=== PATIENT | female | born 1980 | race African-American/Black ===

== ENCOUNTER 2022-02-22 18:14 | Emergency (ER) | payer OTHER, SELFPAY ==
--- NOTE | ~2022-02-22 | CT_ITS ---
EXAMINATION: CT lumbar spine wo con DATE: 02/22/2022 19:40 INDICATION: low back pain, injury . TECHNIQUE: Computed tomography (CT) of the lumbar spine was performed without intravenous contrast. A utomated exposure control and iterative reconstruction technique were employed. The dose-length produ ct was 1290.32 mGy-cm. COMPARISON: None. FINDINGS: Mild lumbar scoliosis. 5 nonrib-bearing lumbar-type vertebral bodies. Pedicles intact. Norm al vertebral body alignment. Vertebral body heights preserved. Multilevel mild disc space narrowing a t L3-4 and L5-S1. Moderate disc space narrowing at L4-5, where a moderate right lateral disc protrusi on contributes to moderate right neural foraminal narrowing. No severe central canal stenosis. IUD, i n good position. Mild multilevel facet arthropathy. IMPRESSION: No acute fracture or traumatic malalignment in the lumbar spine. Chronic and incidental findings deta iled above. Reviewed, dictated and finalized at location K. ING MACHINE OPERATOR IMPRESSION: No acute fracture or traumatic malalignment in the lumbar spine. Chronic and in cidental findings detailed above.
[2022-02-22 18:27] VITALS: BP 137/96; PULSE 101; RESP 20; TEMP 36.1; O2SAT 99
--- NOTE | 2022-02-22 18:37 | PC.NURSE ---
EDP in bedside to assess pt.
--- NOTE | 2022-02-22 18:40 | ED.BACK ---
HPI - Back Pain/Injury General Chief Complaint: Back Pain/Injury Stated Complaint: lower back spasm Time Seen by Provider: 02/22/22 18:33 Source: patient Mode of arrival: ambulatory Limitations: no limitations History of Present Illness HPI Narrative: This is a 41-year-old female that presents to the emergency department for low back pain ongoing over the last 2 days. Reports she was walking her dog and the dog pulled on its leash. This caused her to fall onto her bottom. Reports since she has had low back pain, worse with movement. Reports that the pain radiates into her left leg. It is achy and at times sharp in nature. There is a prior history of chronic low back problems. She has been trying to take ibuprofen with little relief. Denies saddle anesthesia, or bowel/bladder incontinence. Related Data Allergies Allergy/AdvReac Type Severity Reaction Status Date / Time Penicillins Allergy Swelling Verified 02/22/22 18:55 of Lip/Tongue/Throat Review of Systems Review of Systems: CONSTITUTIONAL: Denies fever SKIN: Denies rash MUSCULOSKELETAL: Reports back pain, joint pain, and myalgia. NEUROLOGIC: Denies numbness, or weakness. All systems reviewed & are unremarkable except as noted in HPI and below PMFSH Past Medical History Medical History (Updated 02/22/22 @ 20:08 by Janeth Pendleton PA-C) No active medical problems Social History Social History (Updated 02/22/22 @ 18:41 by Janeth Pendleton PA-C) Substance use: never Exam Narrative: GENERAL: Well-appearing, well-nourished, and in no acute distress. HEAD: Normocephalic, atraumatic. EYES: EOMI. CHEST: Clear to auscultation. No respiratory distress. No wheezes rales or rhonchi HEART: Regular rate and rhythm. No murmur heard. Normal peripheral pulses. BACK: Tender to palpation of midline lumbar spine and paraspinal musculature EXTREMITIES: Normal range of motion. No edema. Normal DP pulses. Strength equal in bilateral lower extremities (5/5) SKIN: Warm, dry, no rash. NEURO: No focal deficits. Alert and oriented x3. PSYCH: Normal mood and affect Course Course Emergency Course: Patient updated on workup, agrees with plan of care Vital Signs Vital signs: Vital Signs Temperature 97.0 F L 02/22/22 18:27 Pulse Rate 101 H 02/22/22 18:27 Respiratory Rate 20 02/22/22 18:27 Blood Pressure 137/96 H 02/22/22 18:27 Pulse Oximetry 99 02/22/22 18:27 Oxygen Delivery Room Air 02/22/22 18:27 Temperature 97.0 F L 02/22/22 18:27 Pulse Rate 101 H 02/22/22 18:27 Respiratory Rate 20 02/22/22 18:27 Blood Pressure 137/96 H 02/22/22 18:27 Pulse Oximetry 99 02/22/22 18:27 Oxygen Delivery Room Air 02/22/22 18:27 MDM - Back Pain/Injury MDM Narrative Medical decision making narrative: Patient presents to the ER for acute on chronic low back pain after a fall 2 days ago. Patient is neurovascularly intact. Denies any saddle anesthesia, bowel/bladder incontinence. CT scan of the lumbar spine is without acute traumatic findings. Patient was updated on work-up. Instructed to rest, ice and take [id number] pain medication as needed. Will be prescribed muscle relaxer as needed for pain as well as a steroid taper. She is to follow-up with her primary care provider. She was given warnings to return to the ER Differential Diagnosis Differential diagnosis: Likely lumbar radiculopathy, sciatica, strain of lumbar region and other (contusion) Lab Data Attestation: I reviewed the patient's lab results. Labs: UCG Bedside Result Negative Reference Range: Negative Imaging Data Radiologist's impression: ITS Impressions Lumbar Spine CT 02/22/22 19:51 IMPRESSION: No acute fracture or traumatic malalignment in the lumbar spine. Chronic and incidental findings detailed above. Critical Care Time Critical Care Time Critical Care Time: No D
[2022-02-22] MEDS: ACETAMINOPHEN 500 MG TABLET 1000 MG PO (19:00)
[2022-02-22] MEDS: diazePAM INJ (*CRX) 10 MG/2 ML SYRINGE 5 MG IM (19:01)
[2022-02-22] MEDS: KETOROLAC 30 MG/ML VIAL (*BKC) IM (20:10)
[2022-02-22] MEDS: predniSONE 20 MG TABLET 60 MG PO (21:14)
[2022-02-22 21:18] VITALS: BP 125/81; PULSE 71; RESP 16; O2SAT 98
== END 2022-02-22 21:18 | disposition home or self-care (01) ==
PROVIDERS: Emergency Provider Physician Assistant; PCP Family Medicine Sports Medicine
DX: M54.42 Lumbago with sciatica, left side (principal); W18.39XA Other fall on same level, initial encounter; Y93.K1 Activity, walking an animal
CPT/HCPCS: 72131; 81025; 96372; 99284; A9270; J1885; J3360; J7512

== ENCOUNTER 2022-09-19 18:09 | Emergency (ER) | payer OTHER, SELFPAY ==
[2022-09-19 18:17] VITALS: BP 118/79; PULSE 80; RESP 19; TEMP 36.1; O2SAT 99
--- NOTE | 2022-09-19 18:21 | ED.EYEPROB ---
HPI - Eye Problem General Chief complaint: Eye Problems Stated complaint: EYE IRRITATION Time Seen by Provider: 09/19/22 18:22 Source: patient, RN notes reviewed and old records reviewed Mode of arrival: ambulatory Limitations: no limitations History of Present Illness HPI Narrative: 42-year-old female accompanied by son presents to [facility] complaints feeling like she has a scratch in her left eye pr something in it. Patient reports that she felt some irritation to her left eye last evening thought she had maybe a eyelash in it and still had contact in when she rubbed it, she took out contact and went to bed. Patient states her left eye still felt a little irritation to eye when she awoke and she was getting ready and put her contact it and had increased irritation of her left eye with sunlight causing her increased discomfort.took out contact and has only worn contact to unaffected eye today.Patient described pain as pressure and soreness to her left eye. MD chief complaint: eye pain and other (feels like eye is scratched) Onset (ago): day(s) (since last night) Onset description: gradual Duration: progressively worsening Location: left eye Severity scale (1-10): 7 Treatments Prior to Arrival: removed contact lens Related Data Home Medications Medication Instructions Recorded Confirmed escitalopram oxalate 20 mg tablet 20 mg PO DAILY 09/19/22 09/19/22 trazodone 50 mg tablet 50 mg PO HS 09/19/22 09/19/22 Allergies Allergy/AdvReac Type Severity Reaction Status Date / Time Penicillins Allergy Swelling Verified 09/19/22 18:24 of Lip/Tongue/Throat Review of Systems Review of Systems: CONSTITUTIONAL: Denies fever, chills, or sweats. EYES: Denies visual changes. Reports redness,irritation, photosensitivity to left eye and discomfort ENT: Denies rhinorrhea, congestion, sore throat, or otalgia. CARDIOVASCULAR: Denies chest pain, palpitations, or edema. RESPIRATORY: Denies cough or dyspnea. SKIN: Denies rash or itching. NEUROLOGIC: Denies headache PMFSH Past Medical History Medical History (Updated 09/19/22 @ 20:16 by Nerissa Gardner NP) Anxiety and depression Back pain Social History Social History (Updated 09/19/22 @ 20:17 by Nerissa Gardner NP) Smoking status: Never smoker Alcohol intake: unknown Substance use: never Living arrangements: with family Gender identity (if verbalized by the patient): Female Comments At time of signature, agree with nursing past medical, surgical, social and family history. There is no relevant family history pertinent to the presenting complaint Exam Narrative: GENERAL: Well-appearing, well-nourished, and in no acute distress. HEAD: Normocephalic, atraumatic. EYES: PERRLA and EOMI. Upper and lower eyelids unremarkable. No periorbital cellulitis noted. Sclera injected left eye, irritation with photosensitivity,pressure left eye with soreness, denies sharp pain, ENT: Nares clear, no rhinorrhea or epistaxis. Mucous membranes moist. NECK: Supple. no lymphadenopathy CHEST: Clear to auscultation. No respiratory distress. HEART: Regular rate and rhythm. No murmur heard. Normal peripheral pulses. SKIN: Warm, dry, no rash. NEURO: No focal deficits. Alert and oriented x3. Course Course Emergency Course: Patient is aware of diagnosis, understands and agrees to treatment plan. Anticipatory guidance given. Patient agrees to follow-up as directed and is aware of reasons to seek care at the emergency department. Portions of this record may have been created with voice recognition software Level of Care: [facility] Visit Vital Signs Vital signs: Vital Signs Temperature 36.1 C L 09/19/22 18:17 Pulse Rate 80 09/19/22 18:17 Respiratory Rate 19 09/19/22 18:17 Blood Pressure 118/79 09/19/22 18:17 Pulse Oximetry 99 09/19/22 18:17 Oxygen Delivery Room Air 09/19/22 18:17 Temperature 36.1 C L 09/19/22 18:17 Pulse Rate 8
== END 2022-09-19 18:41 | disposition home or self-care (01) ==
PROVIDERS: Emergency Provider Registered Nurse
DX: S05.02XA Injury of conjunctiva and corneal abrasion without foreign body, left eye, initial encounter (principal); X58.XXXA Exposure to other specified factors, initial encounter; F41.9 Anxiety disorder, unspecified; F32.A Depression, unspecified
CPT/HCPCS: 99213; A9270; G0463

== ENCOUNTER 2023-10-14 13:34 | Emergency (ER) | payer OTHER, SELFPAY ==
--- NOTE | ~2023-10-14 | CT_ITS ---
EXAMINATION: CT lumbar spine wo con DATE: 10/14/2023 18:16 INDICATION: Chronic low back pain TECHNIQUE: Computed tomography (CT) of the lumbar spine was performed without intravenous contrast. A utomated exposure control and iterative reconstruction technique were employed. The dose-length produ ct was 1270.09 mGy-cm. COMPARISON: 02/22/2022 FINDINGS: Alignment is normal. Schmorl's node along the superior endplate of L5. Vertebral body heigh ts are otherwise normal. Moderate disc height loss at L4-L5. Remaining disc heights are relatively pr eserved. Paravertebral soft tissues are unremarkable. The following disc levels are specifically disc ussed: T11-T12: There is mild right and moderate left facet joint osteoarthritis. There is no neural foramin al stenosis. There is no central canal stenosis. T12-L1: There is mild bilateral facet joint osteoarthritis. There is no neural foraminal stenosis. Th ere is no central canal stenosis. L1-L2: There is mild bilateral facet joint osteoarthritis. There is no neural foraminal stenosis. The re is no central canal stenosis. L2-L3: Disc is mildly bulging. There is mild right and moderate left facet joint osteoarthritis. Ther e is no neural foraminal stenosis. There is normal central canal stenosis. L3-L4: Disc is bulging. There is mild right and mild to moderate left facet joint osteoarthritis. The re is mild bilateral neural foraminal stenosis. There is mild central canal stenosis. L4-L5: Disc is bulging. There is mild to moderate left and severe right facet joint osteoarthritis. T here is moderate bilateral, right greater than left neural foraminal stenosis. There is mild to moder ate central canal stenosis. L5-S1: Prominent central disc protrusion. There is mild right and mild to moderate left facet joint o steoarthritis. There is mild bilateral neural foraminal stenosis. There is mild central canal stenosi s along with narrowing of the left and right lateral recesses. IMPRESSION: 1. Moderate spondylosis at L4-L5 with otherwise mild lumbar and lower thoracic spondylosis.. Reviewed, dictated and finalized at location A.
[2023-10-14 13:34] VITALS: BP 119/84; PULSE 110; RESP 20; TEMP 36.8; O2SAT 98
--- NOTE | 2023-10-14 16:32 | ED.BACK ---
HPI - Back Pain/Injury General Chief Complaint: Back Pain/Injury Stated Complaint: back pain Time Seen by Provider: 10/14/23 16:19 Source: patient Mode of arrival: ambulatory Limitations: no limitations History of Present Illness HPI Narrative: 43 YEARS OLD FEMALE CAME TO THE EMERGENCY ROOM BY PRIVATE CAR COMPLAINING OF LOWER BACK PAIN WITH SHOOTING NUMBNESS TO HER LEFT TOES AND NUMBNESS OF THE RIGHT UPPER EXTREMITY BEEN GOING FOR FEW DAYS. PATIENT HAVE HISTORY OF LOWER BACK BULGING DISC, IS TO HAVE EPIDURAL INJECTION THE PAST, MOVED TO [place] RECENT AND DOES NOT HAVE A PHYSICIAN. SHE DENIES PATIENT DENIES BOWEL DYSFUNCTION, BLADDER DYSFUNCTION, ALTERED SENSATION, FOCAL WEAKNESS, OR SADDLE NUMBNESS, Related Data Home Medications Medication Instructions Recorded Confirmed escitalopram oxalate 20 mg tablet 20 mg PO DAILY 09/19/22 09/19/22 trazodone 50 mg tablet 50 mg PO HS 09/19/22 09/19/22 Allergies Allergy/AdvReac Type Severity Reaction Status Date / Time Penicillins Allergy Swelling Verified 09/19/22 18:24 of Lip/Tongue/Throat Review of Systems Review of Systems: All systems reviewed & are unremarkable except as noted in HPI and below PMFSH Past Medical History Medical History Anxiety and depression Back pain Social History Social History Smoking status: Never smoker Alcohol intake: unknown Substance use: never Living arrangements: with family Gender identity (if verbalized by the patient): Female Exam Narrative: GENERAL APPEARANCE: WELL-DEVELOPED, WELL-NOURISHED SKIN: NORMAL COLOR CHEST AND RESPIRATORY: AIRWAY PATENT, NO RESPIRATORY DISTRESS, NO ACCESSORY MUSCLE USE HEART: REGULAR RATE/RHYTHM ABDOMEN: SOFT, NONTENDER, NO ORGANOMEGALY, QUIET BOWEL SOUNDS VASCULAR: NORMAL PERIPHERAL PULSES, NORMAL CAPILLARY REFILL. MUSCULOSKELETAL: DIFFUSE TENDERNESS LUMBAR AND LEFT BUTTOCK, NO BRUISES, NO SWELLING OR RASH NEUROLOGIC: ALERT AND ORIENTED ?3, POSITIVE LEFT LEG RAISING TEST Course Vital Signs Vital signs: Vital Signs Temperature 36.8 C 10/14/23 13:34 Pulse Rate 110 H 10/14/23 13:34 Respiratory Rate 20 10/14/23 13:34 Blood Pressure 119/84 10/14/23 13:34 Pulse Oximetry 98 10/14/23 13:34 Oxygen Delivery Room Air 10/14/23 13:34 Temperature 36.8 C 10/14/23 13:34 Pulse Rate 110 H 10/14/23 13:34 Respiratory Rate 20 10/14/23 13:34 Blood Pressure 119/84 10/14/23 13:34 Pulse Oximetry 98 10/14/23 13:34 Oxygen Delivery Room Air 10/14/23 13:34 MDM - Back Pain/Injury MDM Narrative Medical decision making narrative: DIFFERENTIAL DIAGNOSIS INCLUDE MUSCULOSKELETAL, SCIATICA CT LUMBAR SPINE SHOWED NO ACUTE ABNORMALITIES PATIENT RECEIVED DILAUDID, ZOFRAN AND DECADRON IN THE ED PRIOR TO DISCHARGE WITH REMARKABLE IN. DISCHARGED ON DECADRON. Differential Diagnosis Differential diagnosis: Likely other ( ABOVE) Imaging Data Radiologist's impression: Impressions Lumbar Spine CT 10/14/23 18:22 IMPRESSION: 1. Moderate spondylosis at L4-L5 with otherwise mild lumbar and lower thoracic spondylosis.. Critical Care Time Critical Care Time Critical Care Time: No Discharge Plan Discharge Clinical Impression: Low back pain radiating to left lower extremity Patient Disposition: Home, Self-Care Condition: Stable Instructions: Lumbar Radiculopathy (ED), Lower Back Exercises (ED) Additional Instructions: RETURN IF SYMPTOMS ARE WORSENING , CALL YOUR FAMILY PHYSICIAN FOR APPOINTMENT, TAKE TYLENOL NEEDED FOR ACHES A
[2023-10-14] MEDS: dexAMETHasone SOD PHOS INJ 10 MG/ML 1 ML VIAL IM (17:42)
[2023-10-14] MEDS: HYDROmorphone HCL INJ (*CRX) 1 MG/ML SYR IM (17:42)
[2023-10-14] MEDS: ONDANSETRON HCL ODT 4 MG TABLET PO (17:42)
== END 2023-10-14 18:55 | disposition home or self-care (01) ==
PROVIDERS: Emergency Provider Emergency Medicine
DX: M54.50 Low back pain, unspecified (principal); M79.662 Pain in left lower leg; F41.8 Other specified anxiety disorders
CPT/HCPCS: 72131; 96372; 99284; A9270; J1100; J1170

== ENCOUNTER 2024-11-04 13:20 | Emergency (ER) | payer OTHER, SELFPAY ==
--- OUTSIDE RECORDS SUMMARY | 2024-11-03 18:00 | XMS_ITS | Encounter Summary ---
Author Organization [facility] Healthcare Address [address] [place] [address] Care Team Providers Care Pipeline Inspector Name Role Phone Yulisa Munoz MD Primary Care Provider Unknown, Notinfile Unavailable Unavailable Yovany Lloyd MD Unavailable [phone] Reason for Visit * Reason Comments URI Headache, no voice, cold all the time, heavy chest, dry cough, light headed when standing Encounter Details Date Type Department Care Team (Late st Contact Info) Description 11/03/2024 6:00 PM CDT Office Visit [facility] at [address] [address] Daisy Rowe, AUDIOVISUAL AIDS TECHNICIAN [address] [place] [address] [address] [place] [address] Nonintractable headache, unspecified chronicity pattern, unspecified headache type (Primary Dx); COVID-19; Dizziness Social History Tobacco Use Types Packs/Day Years Used Date Smoking Tobacco: Former Vaping Smokeless Tobacco: Never Humiliation, Afraid, Rape, and Kick questionnair e Answer Date Recorded Within the last year, have y ou been afraid of your partner or ex-partner? No 04/14/2022 Within the last year, have y ou been humiliated or emotionally abused in other ways by your partner or ex-partner? No Within the last year, have y ou been kicked, hit, slapped, or otherwise physically hurt by your partner or ex-partner? No 04/14/2022 Within the last year, have y ou been raped or forced to have any kind of sexual activity by your partner or ex-partner? No 04/14/2022 AUDIT-C Answer Date Recorded Frequency of Alcohol Consumption Not on file 10/19/2022 Q2: How many drinks containi ng alcohol do you have on a typical day when you are drinking? Patient does not drink Frequency of Binge Drinking Not on file 08/2022 PHQ-2 Answer Date Recorded PHQ-2 Total Score (If total score is 3 or more points, staff should administer the PHQ-9) 2 06/27/2023 PHQ-9 Answer Date Recorded PHQ-9 Total Score 9 06/27/2023 Personal Safety Answer Date Recorded Have you ever been in or are you currently in a harmful physical or emotional relationship or is someone making you feel afraid or unsafe? 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 Gender Identity Not on file Sexual Orientation Not on file documented as of this encounter Last Filed Vital Signs Vital Sign Reading Time Taken Comments Blood Pressure 120/86 11/03/2024 5:58 PM CDT Pulse 97 11/03/2024 5:58 PM CDT Temperature 36.5 C (97.7 F) 11/03/2024 5:58 PM CDT Respiratory Rate 18 11/03/2024 5:58 PM CDT Oxygen Saturation 99% 11/03/2024 5:58 PM CDT Inhaled Oxygen Concentration - - Weight 106.6 kg (235 lb) 11/03/2024 5:58 PM CDT Height 170.2 cm (5' 7) 11/03/2024 5:58 PM CDT Body Mass Index 36.81 11/03/2024 5:58 PM CDT documented in this encounter Patient Instructions * Patient Instructions* Daisy Rowe NP - 11/03/2024 6:00 PM CDT If you have no improvement or worsening of your symptoms, please follow up with your Primary Care Provider, Convenient Care and or Emergency Room. I strive to provide you with EXCELLENT service. You may receive a survey after your visit today. If you cannot rate your experience as EXCELLENT, please let us know how we can improve and better meet your needs. Thank you for choosing [facility]! It was my pleasure to see you today, I hope you feel better soon! Daisy Rowe TERENCE If You Test Positive for COVID-19: Regardless of vaccination status, you should isolate from others when you have COVID-19. You should also isolate if you are sick and suspect that you have COVID-19 but do not yet have testresults. Day 1 is the first full day after the day your symptoms started You are likely most infectious during these first 5 days. Wear a high-quality mask if you must be around others at home and in public. Do not go places where you are unable to wear a mask. Do not travel. Stay home and separate from others as much as possible. Use a separate bathroom, if possible. Take steps to improve ventilation at home, if possible. Don???t share personal household items, like cups, towels, and utensils. Monitor your symptoms. If you have progression of your symptoms, seek emergency medical care immediately. If you have a fever, continue to stay home until your fever resolves for at least 24 hours (withouttaking fever-reducing medications) and other symptoms are improving. Loss of taste and smell may persist for weeks or months after recovery and need not delay the end of isolation. A high-quality mask should be worn around others at home and in public through day 10. In certain high-risk congregate settings that have high risk of secondary transmission, CDC recommends a 10-day isolation period for residents. What about my close contacts? - They should wear a mask since they were exposed. Start counting from Day 1 Day 0 is the day of your last exposure to someone with COVID-19 Day 1 is the first full day after your last exposure Obtain testing for any symptoms: fever (100.4??F or greater) cough shortness of breath/difficulty breathing Diarrhea Headache Muscle/body aches New loss of taste or smell Sore throat Runny nose/nasal congestion Loss of taste/smell Nausea/vomiting Get tested at least 5 full days after your last exposure- Test even if you don???t develop symptoms. When will my results be available? - PCR tests take between 8 hours to 2 days. You will be notified as soon as results are available. The CDC and [facility] have much more information available online. The websites are: - cdc.gov - bjc.org Additional resources around self-isolation and how to prevent spread are at: cdc.gov/coronavirus/2019-ncov/about/index.html If symptoms are severe, rest at home for the first 2 to 3 days. When you resume activity, don't letyourself get too tired. Don't smoke. If you need help stopping, talk with your healthcare provider. Avoid being exposed to cigarette smoke (yours or others???). You may use acetaminophen to control pain and fever, unless another medicine was prescribed. If youhave chronic liver disease, have ever had a stomach ulcer or gastrointestinal bleeding talk with your healthcare provider before using these medicines. Aspirin should never be given to anyone under 18 years of age who is ill with a viral infection or fever. It may cause severe liver or brain damage. Your appetite may be poor, so a light diet is fine. Stay well hydrated by drinking 6 to 8 glasses of fluids per day (water, soft drinks, juices, tea, or soup). Extra fluids will help loosen secretions in the nose and lungs. Mhbo-zls-lnvvieu cold medicines will not shorten the length of time you???re sick, but they may be helpful for the following symptoms: cough, sore throat, and nasal and sinus congestion. If you take prescription medicines, ask your healthcare provider or pharmacist which sbnt-cas-gycfdqr medicines are safe to use. (Note: Don't use decongestants if you have high blood pressure.) If you develop worsening of shortness of breath, high fevers, symptoms of respiratory distress, or other concerning symptoms, go to the ER or call 911. * Attachments The following attachments cannot be sent through Care Everywhere. * Dizziness (AfterCare(R) Instructions(ER/ED)) ([place]an) documented in this encounter Ordered Prescriptions Prescription Sig Dispense Quantity Refills Last Filled Start Date End Date meclizine (ANTIVERT) 25 mg tabletIndications: Dizziness Take 1 tablet (25 mg total) by mouth 3 (three) times a day as needed for dizziness 20 tablet 11/03/2024 lidocaine viscous (XYLOCAINE) 2 % solutionIndication s:COVID-19 Apply 10 mL to the mouth or throat every 6 (six) hours as needed (sore throat) May mix with 30 ml of Mylanta 100 mL 11/03/2024 benzonatate (TESSALON) 200 mg capsuleIndications :COVID-19 Take 1 capsule (200 mg total) by mouth 3 (three) times a day as needed for cough 30 capsule 11/03/2024 documented in this encounter Progress Notes * Daisy Rowe, AUDIOVISUAL AIDS TECHNICIAN - 11/03/2024 6:00 PM CDT Images from the original note were not included. Subjective/Objective Patient ID: Linnea Brewer is a 44 y.o. female. This patient has verbally consented to recording this visit in order to utilize AI technology in generating this note. Chief Complaint URI (Headache, no voice, cold all the time, heavy chest, dry cough, light headed when standing) History of Present Illness Linnea Brewer is a 44 year old female who presents with dizziness, headache, and respiratory symptoms. She woke up on Sunday with a headache, hoarseness, feeling cold, heaviness in the chest, and lightheadedness upon standing. The dizziness is severe and has limited her daily activities, leading herto remain mostly lying down since Sunday. She experiences a sore throat, sinus congestion, and headaches. She has been taking Nyquil and sinus medication without relief. She has not eaten since Sunday due to lack of appetite, consuming only hot tea and Gatorade, which she believes contributes to feeling jittery. She has potential exposure to COVID-19 from a coworker and her son in college. She has a history ofCOVID-19 infection and has been vaccinated twice. No loss of smell or taste is noted. She uses honey to alleviate her cough and sore throat. She is concerned about her 11-year-old son being exposed to her illness, noting that all her children have had COVID except him. On Sunday, she visited urgent care in [place] due to severe leg pain, suspecting a blood clot. An EKG was performed and results were normal. She confirms no chance of , having had a tubal ligation at age 42. Review of Systems All other systems reviewed and are negative. Physical Exam VITALS: T- 97.7 HEENT: Throat red Physical Exam Constitutional: Appearance: Normal appearance. She is normal weight. She is not ill-appearing. HENT: Head: Normocephalic. Right Ear: Tympanic membrane, ear canal and external ear normal. Left Ear: Tympanic membrane, ear canal and external ear normal. Nose: Nose normal. Mouth/Throat: Mouth: Mucous membranes are moist. Pharynx: Oropharynx is clear. Posterior oropharyngeal erythema present. Eyes: Pupils: Pupils are equal, round, and reactive to light. Cardiovascular: Rate and Rhythm: Normal rate and regular rhythm. Pulses: Normal pulses. Heart sounds: Normal heart sounds. Pulmonary: Effort: Pulmonary effort is normal. Breath sounds: Normal breath sounds. No rhonchi. Musculoskeletal: General: Normal range of motion. Cervical back: Normal range of motion. Skin: General: Skin is warm and dry. Capillary Refill: Capillary refill takes less than 2 seconds. Neurological: General: No focal deficit present. Mental Status: She is alert and oriented to person, place, and time. Mental status is at baseline. Psychiatric: Mood and Affect: Mood normal. Behavior: Behavior normal. Thought Content: Thought content normal. Judgment: Judgment normal. Vitals: 11/03/24 1758 BP: 120/86 Pulse: 97 Resp: 18 Temp: 36.5 ??C (97.7 ??F) SpO2: 99% Weight: 106.6 kg (235 lb) Height: 170.2 cm (5' 7) No results found. Past Medical History: Diagnosis Date Anxiety Bilateral low back pain with sciatica 04/28/2016 Depression Current Outpatient Medications: escitalopram (LEXAPRO) 20 mg tablet, TAKE 1 TABLET(20 MG) BY MOUTH DAILY, Disp: 90 tablet, Rfl: 1 fluticasone propionate (FLONASE) 50 mcg/actuation nasal spray, Administer 1 spray into each nostrildaily, Disp: 1 each, Rfl: 11 azithromycin (ZITHROMAX) 250 mg tablet, Take 2 tabs (500 mg) by mouth today, than 1 tab (250 mg) daily for 4 days., Disp: 6 tablet, Rfl: 0 benzonatate (TESSALON) 200 mg capsule, Take 1 capsule (200 mg total) by mouth 3 (three) times a dayas needed for cough, Disp: 30 capsule, Rfl: 0 cefdinir (OMNICEF) 300 mg capsule, Take 1 capsule (300 mg total) by mouth 2 (two) times a day for 5days, Disp: 10 capsule, Rfl: 0 lidocaine viscous (XYLOCAINE) 2 % solution, Apply 10 mL to the mouth or throat every 6 (six) hours as needed (sore throat) May mix with 30 ml of Mylanta, Disp: 100 mL, Rfl: 0 meclizine (ANTIVERT) 25 mg tablet, Take 1 tablet (25 mg total) by mouth 3 (three) times a day as needed for dizziness, Disp: 20 tablet, Rfl: 0 traZODone (DESYREL) 50 mg tablet, TAKE 1/2 TO 1 TABLET EVERY NIGHT AT BEDTIME NEEDED FOR SLEEP (Patient not taking: Reported on 11/03/2024), Disp: 90 tablet, Rfl: 1 Allergies Allergen Reactions Penicillins Anaphylaxis Social History Tobacco Use Smoking status: Former Types: Vaping Smokeless tobacco: Never Substance and Sexual Activity Drug use: Not Currently Types: Medical marijuana Comment: edibles not since May 01 Sexual activity: Yes Partners: Male control/protection: I.U.D. Alcohol Use: Unknown (10/19/2022) AUDIT-C Frequency of Alcohol Consumption: Not on file Average Number of Drinks: Patient does not drink Frequency of Binge Drinking: Not on file Past Surgical History: Procedure Laterality Date SECTION TONSILLECTOMY AND ADENOIDECTOMY TUBAL LIGATION 10/2022 Procedures Assessment/Plan Results DIAGNOSTIC EKG: Normal (10/31/2024) No results found for this or any previous visit (from the past 4 hours). Assessment & Plan COVID-19 infection Acute COVID-19 infection with sore throat, sinus congestion, headache, and dizziness. Vaccinated twice. No fever. - Order chest x-ray to rule out complications due to shortness of breath and chest discomfort. - Advise continuation of symptomatic treatment with vgey-gis-qbthxzl medications for sinus congestion and sore throat. - Discuss quarantine guidelines: fever-free for 24 hours and symptoms returning to baseline before ending isolation. Chest discomfort Heaviness in the chest with shortness of breath, likely due to COVID-19 infection. Previous EKG normal. - Order chest x-ray to evaluate lungs and rule out complications. Cough Persistent cough causing difficulty sleeping, likely related to COVID-19 infection. - Prescribe cough suppressant to aid sleep. - Prescribe medication to numb the throat if needed. Sore throat Sore throat with redness, common with current COVID-19 infection. - Advise continuation of symptomatic treatment with ctda-hlq-nfsuyxh medications. - Recommend honey as a natural cough suppressant. Dizziness Dizziness described as lightheadedness upon standing, likely related to COVID-19 infection. - Prescribe meclizine for dizziness, especially related to position change. Headache Headache likely related to sinus congestion from COVID-19 infection. - Advise continuation of symptomatic treatment with znqu-nts-sbsrpze medications for sinus congestion. Diagnoses and all orders for this visit: Nonintractable headache, unspecified chronicity pattern, unspecified headache type (Primary) COVID-19 - POC Influenza A/B, COVID-19 antigen - benzonatate (TESSALON) 200 mg capsule; Take 1 capsule (200 mg total) by mouth 3 (three) times a day as needed for cough - XR Chest Pa Lateral 2 Views; Future - lidocaine viscous (XYLOCAINE) 2 % solution; Apply 10 mL to the mouth or throat every 6 (six) hours as needed (sore throat) May mix with 30 ml of Mylanta Dizziness - meclizine (ANTIVERT) 25 mg tablet; Take 1 tablet (25 mg total) by mouth 3 (three) times a day as needed for dizziness 0809- IMPRESSION: 1. Low lung volumes with mild patchy right basilar airspace opacities, which may be related to subsegmental atelectasis/scarring versus developing airspace disease. Discussed with patient, will add Cefdinir and Azithromycin to cover for pneumonia. Disposition Treatment plan including expectations, follow up, and return precautions discussed with patient/parent, verbalizes understanding. Medication dosage, use, and potential adverse reactions discussed with patient/parent. Advised to follow up with PCP if symptoms do not resolve as expected or sooner if condition worsens. Signs/symptoms warranting ER evaluation reviewed. Patient and/or guardian was given an opportunity to ask questions, questions answered. Daisy Rowe NP documented in this encounter Plan of Treatment Not on file documented as of this encounter Procedures Procedure Name Priority Date/Time Associated Diagnosis Comments POC INFLUENZA A/B, COVID-19 ANTIGEN Routine 11/03/2024 6:06 PM CDT COVID-19 documented in this encounter Results * XR Chest Pa Lateral 2 Views (11/03/2024 6:43 PM CDT) Anatomical Region Laterality Modality Body, Chest N/A Computed Radiogr aphy 11/04/2024 6:42 AM CDT Narrative 11/04/2024 6:42 AM CDT EXAM DESCRIPTION: XR CHEST PA LATERAL 2 VIEWS REASON FOR STUDY: cough TECHNIQUE: Frontal and lateral radiographic view(s) of the chest. COMPARISON: None FINDINGS: There are low lung volumes. The heart size is accentuated by low lung volumes. The pulmonary vasculature and mediastinum are grossly unremarkable. There is no definite evidence of a pneumothorax. There is no definite evidence of pleural effusion. There are mild patchy right basilar airspace opacities. The osseous structures are acutely grossly unremarkable. IMPRESSION: 1. Low lung volumes with mild patchy right basilar airspace opacities, which may be related to subsegmental atelectasis/scarring versus developing airspace disease. THIS IS AN ELECTRONICALLY VERIFIED FINAL REPORT 11/04/2024 6:42 AM - Electronically signed by Lizet Mccain D.O. PS T: Report ID: [id number] Reading Location: [id number] Procedure Note Lizet Mccain, - 11/04/2024 EXAM DESCRIPTION: XR CHEST PA LATERAL 2 VIEWS REASON FOR STUDY: cough TECHNIQUE: Frontal and lateral radiographic view(s) of the chest. COMPARISON: None FINDINGS: There are low lung volumes. The heart size is accentuated bylow lung volumes. The pulmonary vasculature and mediastinum are grossly unremarkable. There is no definite evidence of a pneumothorax. There isno definite evidence of pleural effusion. There are mild patchy rightbasilar airspace opacities. The osseous structures are acutely grossly unremarkable. IMPRESSION: 1. Low lung volumes with mild patchy right basilar airspace opacities,which may be related to subsegmental atelectasis/scarring versus developingairspace disease. THIS IS AN ELECTRONICALLY VERIFIED FINAL REPORT 11/04/2024 6:42 AM - Electronically signed by Lizet Mccain D.O. PS T: Report ID: [id number] Reading Location: [place] [address] Daisy Rowe AUDIOVISUAL AIDS TECHNICIAN IMG XR PROCEDURES Final Re sult * (ABNORMAL) POC Influenza A/B, COVID-19 antigen (11/03/2024 6:06 PM CDT) Influenza A Ag, POC Negative Negative [facility] Influenza B Ag, POC Negative Negative [facility] COVID-19 Ag POC Positive(A) Presumptive Negative, Invalid [facility] Nasal 11/03/2024 6:06 PM CDT Daisy Rowe AUDIOVISUAL AIDS TECHNICIAN POINT OF CARE TEST ORDERAB LES Final Result [facility] [address] [place] [address], [facility] documented in this encounter Visit Diagnoses Diagnosis Nonintractable headache, unspecified chronicity pattern, unspecified headache type- Primary COVID-19 Dizziness Dizziness and giddiness COVID-19 documented in this encounter Additional Health Concerns Infection Onset Date Last Indicated Resolved Time COVID: Suspected 11/03/2024 11/03/2024 11/03/2024 6:17 PM CDT documented as of this encounter Care Teams Pipeline Inspector Relationship Specialty Start Date End Date Yulisa Munoz MD PCP - General Family Practice 02/21/22 Unknown, Notinfile 01/19/22 Yovany Lloyd MD [address] [place] [address] DR P[address]ARD [address] [place] [address] Lard Bleacher Obstetrics and Gynecology 10/25/22 documented as of this encounter
--- OUTSIDE RECORDS SUMMARY | 2024-11-03 18:25 | XMS_ITS | Encounter Summary ---
Author Organization [facility] Healthcare Address [address] [place] [address] Care Team Providers Care Skip Tender Name Role Phone Yulisa Munoz MD Primary Care Provider Unknown, Notinfile Unavailable Unavailable Yovany Lloyd MD Unavailable [phone] Encounter Details Date Type Department Care Team (Late st Contact Info) Description 11/03/2024 6:25 PM CDT Ancillary Procedure [place] [address] [place] [address] COVID-19 Social History Tobacco Use Types Packs/Day Years [...] you are drinking? 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 PS T: Report ID: [id number] Reading Location: [id number] Procedure Note Lizet Mccain, - 11/04/2024 EXAM [...] Lizet Mccain D.O. PS T: Report ID: [id number] Reading Location: [id number] Daisy Rowe DOBBY LOOMS PEGGER IMG XR PROCEDURES Final Re sult documented in this encounter Visit Diagnoses Diagnosis COVID-19 documented in this encounter Additional Health Concerns Infection Onset Date Last Indicated Resolved Time COVID19 11/03/2024 11/03/2024 documented as of this encounter Care Teams Skip Tender Relationship Specialty Start Date End Date Yulisa Munoz MD PCP - General Family Practice 02/21/22 Unknown, Notinfile 01/19/22 Yovany Lloyd MD [address] [facility] [address] [place] [id number] Fruit Grower Obstetrics and Gynecology 10/25/22 documented as of this encounter
--- NOTE | ~2024-11-04 | XR_ITS ---
EXAMINATION: XR chest 2V 11/04/2024 20:44 INDICATION: Covid pneumonia PROCEDURE: 2 view chest COMPARISON: No prior studies for comparison. FINDINGS: The lungs are clear. The cardiomediastinal silhouette is within normal limits. There are no pleural effusions. There is no pneumothorax suspected. IMPRESSION: 1: NO ACUTE CARDIOPULMONARY DISEASE. Reviewed, dictated and finalized at location O.
--- OUTSIDE RECORDS SUMMARY | 2024-11-04 12:45 | XMS_ITS | Encounter Summary ---
Author Organization [facility] Healthcare Address [address] [place] [address] Care Team Providers Care Procurement Clerk Name Role Phone Yulisa Munoz MD Primary Care Provider Unknown, Notinfile Unavailable Unavailable Yovany Lloyd MD Unavailable [phone] Reason for Visit * Reason Comments Cough Encounter Details Date Type Department Care Team (Late st Contact Info) Description 11/04/2024 12:45 PM CDT Telemedicine [facility] Medical Group Virtual Care [address] [place] [phone] Amarilys Davenport MD [address] [place] [address] [address] [place] [address] COVID-19 (Primary Dx); Acute cough; Shortness of breath; Pneumonia due to COVID-19 virus Social History Tobacco Use Types Packs/Day Years [...] on file Legal Sex 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 Brewer, It was a pleasure speaking with you today. Based on your symptoms, I strongly recommend you go to the Emergency Department as soon as possible. I strive to provide you with EXCELLENT service. You may receive a survey after your visit today. If you cannot rate your experience as EXCELLENT, please let us know how we can improve and better meet your needs. Thank you for choosing [facility]! Hope you feel better soon! Amarilys Davenport MD documented in this encounter Progress Notes * Amarilys Davenport MD - 11/04/2024 12:45 PM CDT This was a telemedicine visit with Linnea mc which took place via real-time video connection with [facility]. During the visit, I was located at home and [facility] The patient visit started at 1237 and ended at 1253. My total encounter time on 11/04/2024 was 27 minutes which was spent in the activities documented in the note. This includes time spent prior to the visit and after the visit in direct care of the patient. This time does not include time spent in any separately reportable services. I have explained the option of participating in a telemedicine visit to the patient. After being given an opportunity to ask questions about and discuss this type of visit, the patient verbally consented to proceeding with the telemedicine visit. The patient understands that this service replaces an office visit and they may be billed and/or responsible for any applicable copayments. A guest was not included in this video visit. Subjective/Objective Patient ID: Linnea Brewer is a 44 y.o. female. Chief Complaint Cough Pt seen in [facility] yesterday and dx'ed with COVID. CXR done showed pneumonia. Zpak and Cefdinir sent out. Pt states she's had dizziness, headache, and respiratory symptoms that started 4 days ago. States her sister tried to get the abx yesterday, but pharm wouldn't fill the cefdinir b/c she's allergic to PCN. Pt states since yesterday she's only slept about 2 hours and feel her breathing is getting worse. Now she's having to stop to take a breath after every 1-2 words (worse than yesterday). Has some lightheadedness. Feels she can't walk around without getting very short of breath and having to stop to breathe. Cough This is a new problem. The current episode started in the past 7 days. The problem has been gradually worsening. The problem occurs every few minutes. The cough is Productive of sputum. Associated symptoms include a fever, headaches, myalgias, nasal congestion, postnasal drip, rhinorrhea, a sore throat, shortness of breath and wheezing. Pertinent negatives include no chest pain, chills, ear congestion, ear pain, heartburn, hemoptysis, rash, sweats or weight loss. The symptoms are aggravated by exercise and lying down. She has tried OTC cough suppressant for the symptoms. The treatment provided mild relief. There is no history of asthma, bronchiectasis, bronchitis, COPD, emphysema, environmental allergies or pneumonia. Review of Systems Constitutional: Positive for fever. Negative for chills and weight loss. HENT: Positive for postnasal drip, rhinorrhea and sore throat. Negative for ear pain. Respiratory: Positive for cough, shortness of breath and wheezing. Negative for hemoptysis. Cardiovascular: Negative for chest pain. Gastrointestinal: Negative for heartburn. Musculoskeletal: Positive for myalgias. Skin: Negative for rash. Allergic/Immunologic: Negative for environmental allergies. Neurological: Positive for headaches. Physical Exam Vitals reviewed: Physical exam is limited by this being a telemedicine visit.. Constitutional: General: She is not in acute distress. Appearance: Normal appearance. She is not ill-appearing, toxic-appearing or diaphoretic. HENT: Head: Normocephalic and atraumatic. Right Ear: External ear normal. Left Ear: External ear normal. Nose: Nose normal. Mouth/Throat: Mouth: Mucous membranes are moist. Pharynx: No oropharyngeal exudate or posterior oropharyngeal erythema. Eyes: General: No scleral icterus. Right eye: No discharge. Left eye: No discharge. Extraocular Movements: Extraocular movements intact. Conjunctiva/sclera: Conjunctivae normal. Pupils: Pupils are equal, round, and reactive to light. Pulmonary: Effort: Respiratory distress present. Comments: Pt was not able to speak in full and complete sentences. Pt did cough a few times during the televisit, but no extended coughing episodes. Pt was using accessory muscles to breathe. Has to stop to take a breath after every 1-2 words. Skin: Capillary Refill: Capillary refill takes less than 2 seconds. Neurological: General: No focal deficit present. Mental Status: She is alert and oriented to person, place, and time. Psychiatric: Mood and Affect: Mood normal. Behavior: Behavior normal. Thought Content: Thought content normal. Judgment: Judgment normal. I have reviewed the most recent progress note prior to this visit. Assessment/Plan Diagnoses and all orders for this visit: COVID-19 (U07.1) (Primary) Based on pt's current symptoms and the fact they are worsening, I recommend she go to the ED for eval and further treatment. Pt states she can have her sister take her to the ED. She is willing to goright now. Acute cough (R05.1) Shortness of breath (R06.02) Pneumonia due to COVID-19 virus (U07.1, J12.82) Amarilys Davenport MD documented in this encounter Plan of Treatment Not on file documented as of this encounter Visit Diagnoses Diagnosis COVID-19- Primary Acute cough Shortness of breath Pneumonia due to COVID-19 virus documented in this encounter Additional Health Concerns Infection Onset Date Last Indicated Resolved Time COVID19 11/03/2024 11/03/2024 documented as of this encounter Care Teams Procurement Clerk Relationship Specialty Start Date End Date Yulisa Munoz MD PCP - General Family Practice 02/21/22 Unknown, Notinfile 01/19/22 Yovany Lloyd MD 4 [facility] [address] [address] Tanker Truck Driver Obstetrics and Gynecology 10/25/22 documented as of this encounter
[2024-11-04 13:21] VITALS: BP 133/100; PULSE 92; RESP 18; TEMP 37; O2SAT 100
--- OUTSIDE RECORDS SUMMARY | 2024-11-04 13:27 | XMS_ITS | Clinical Summary ---
Author Organization [facility] Address [address] [place] [address] Phone Care Team Providers Care Physician Locums Urgent Care Name Role Phone Yulisa Munoz MD Primary Care Provider Unknown, Notinfile Unavailable Unavailable Yovany Lloyd MD Unavailable [phone] Allergies Active Allergy Reactions Criticality Noted Date Comments Penicillins Anaphylaxis High 02/21/2022 Medications traZODone (DESYREL) 50 mg tabletIndicatio ns:Psychophysio logic insomnia TAKE 1/2 TO 1 TABLET EVERY NIGHT AT BEDTIME NEEDED FOR SLEEP 90 tablet 1 3 Active Additional Information Patient not taking.Reported on 11/03/2024 fluticasone propionate (FLONASE) 50 mcg/actuation nasal spray Administer 1 spray into each nostril daily 1 each 11 4 Active escitalopram (LEXAPRO) 20 mg tablet TAKE 1 TABLET(20 MG) BY MOUTH DAILY 90 tablet 1 4 Active benzonatate (TESSALON) 200 mg capsuleIndicati ons:COVID-19 Take 1 capsule (200 mg total) by mouth 3 (three) times a day as needed for cough 30 capsule 5 Active lidocaine viscous (XYLOCAINE) 2 % solutionIndicat ions:COVID-19 Apply 10 mL to the mouth or throat every 6 (six) hours as needed (sore throat) May mix with 30 ml of Mylanta 100 mL 5 Active meclizine (ANTIVERT) 25 mg tabletIndicatio ns:Dizziness Take 1 tablet (25 mg total) by mouth 3 (three) times a day as needed for dizziness 20 tablet 5 Active azithromycin (ZITHROMAX) 250 mg tablet Take 2 tabs (500 mg) by mouth today, than 1 tab (250 mg) daily for 4 days. 6 tablet 5 11/10/19 25 Active cefdinir (OMNICEF) 300 mg capsule Take 1 capsule (300 mg total) by mouth 2 (two) times a day for 5 days 10 capsule 5 11/10/19 25 Active Active Problems Problem Noted Date Diagnosed Date Abnormal mammogram of right breast 05/12/2024 Assessment & Plan (05/12/2024 5:53 AM CDT): Due for screening on left breast and repeat imaging on right. Order placed for a bilateral diagnostic mammogram and right breast u/s. Strongly encouraged patient to schedule appointment for breast imaging. Continue monthly self breast exam. DANO (generalized anxiety disorder) 02/21/2022 Assessment & Plan (06/27/2023 7:31 PM CDT): Chronic. Controlled. Continue current medication. Continue to work on coping strategies. Continue counseling. Monitor. Brief supportive counseling was provided in office today Depression, major, recurrent 02/21/2022 Assessment & Plan (06/27/2023 7:31 PM CDT): Chronic. Controlled with Lexapro. Continue. Brief supportive counseling was provided. Patient is able to contract for safety. Denies suicidal thoughts Psychophysiologic insomnia 02/21/2022 Assessment & Plan (06/27/2023 7:31 PM CDT): Chronic. Trazodone helps a lot. Continue. Work on coping strategies. Monitor Class 2 obesity due to exces s calories without serious comorbidity with body mass index (BMI) of 38.0 to 38.9 in adult 02/21/2022 Assessment & Plan (06/27/2023 7:31 PM CDT): Chronic. Suboptimally controlled. Encouraged healthy diet, exercise IUD (intrauterine device) in place 09/14/2014 Overview (02/21/2022): Insertion 09/14/[address] Bethea/Dr[address] Dee at [facility]. Hyperhidrosis 09/22/2013 Overview (02/21/2022): Well controlled on drysol Resolved Problems Problem Noted Date Diagnosed Date Resolved Date Sterilization 07/25/2022 06/27/2023 Sterilization consult 07/19/20222023 Assessment & Plan (07/19/2022 9:47 PM CDT): Desires sterilization. I have discussed permanency, alternative contraception, 1% failure rate or less, risks of injury and incidence of regret. Risks of bleeding, infection, anesthesia, risks of injury to surrounding structures discussed. Patient desires laparoscopic bilateral salpingectomy for possible cancer reduction benefit. Nature of procedure and recovery discussed. Will arrange. 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 Consider referral back to pain management. MRI negative for surgical pathology Bilateral low back pain with sciatica 04/28/2016 06/27/2023 Depression 07/13/2015 02/21/2022 Overview (02/21/2022): Sees therapist. Started citalopram 07/13/15 Encounters Date Type Department Care Team Description 11/04/2024 12:45 PM CDT Telemedicine [facility] Medical Group Virtual Care [address] [place] [phone] Amarilys Davenport MD COVID-19 (Primary Dx); Acute cough; Shortness of breath; Pneumonia due to COVID-19 virus 11/04/2024 Results Follow-Up [facility] Medical Group Convenient Care at [address] [phone] Daisy Rowe, PAULINE XR Chest Pa Lateral 2 Views 11/03/2024 6:25 PM CDT Ancillary Procedure [address] [address] COVID-19 11/03/2024 6:00 PM CDT Office Visit [facility] Medical Group Convenient Care at [address] [phone] Daisy Rowe, PAULINE Nonintractable headache, unspecified chronicity pattern, unspecified headache type (Primary Dx); COVID-19; Dizziness from Last 3 Months Immunizations Immunization Administration Dates Next Due Hep B Vaccine 05/10/2006,01/23/2006,12/21/2005 Hep B, Adolescent or Pediatric 05/10/2006,2005,12/21/2005 Influenza, Quadrivalent, Spl it, Intramuscular 11/22/2012,11/20/2005 Influenza, Quadrivalent, Spl it, Preservative Free, Intramuscular 11/22/2012 Influenza, Trivalent, IM (MDV) 11/22/2012,2005 Influenza, Trivalent, Split, Preservative Free, Intradermal 11/22/2012,11/20/2005 Pfizer SARS-CoV-2 Monovalent Vaccination (12+ Yrs) PURPLE 03/30/2021,03/09/2021 TD Preservative Free 05/28/2011,12/11/2005,05/27 Td, Unspecified 09/12/2021 Td, adsorbed 05/28/2011,12/11/2005,05/27/2004 Tdap 11/22/2012,05/28/2011 Surgical History Surgery Date Site/Laterality Comments TONSILLECTOMY AND ADENOIDECTOMY SECTION TUBAL LIGATION 10/13/2022 - 11/11/2022 Medical History Medical History Date Comments Anxiety Depression Bilateral low back pain with sciatica 04/28/2016 Family History Medical History Relation Name Comments Coronary artery disease Father pacemaker Father Asthma Mother Mom Hypertension Mother Mom Stomach cancer Paternal Grandmother Colon cancer Neg Hx Other cancer Neg Hx no breast, tank tender, or colon cancers Relation Name Status Comments Father Mother Mom Paternal Grandmother Social History Tobacco Use Types Packs/Day Years [...] you are drinking? 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 Gender Identity Not on file Sexual Orientation Not on file Obstetrics History Para Term AB IAB SAB Ectopic Multiple Livin g Live Births 3 3 3 0 0 0 0 0 0 3 3 Date Outcome GA Total Labor Labor/2nd/3rd Weight Sex Type Anes PTL Scahi A1 A5 Name Clin 998 Term 40w 0d 3.6 kg (7 lb 15 oz) F Vag-S pont None N Livin g Complications:None 006 Term 40w 0d 3.487 kg (7 lb 11 oz) M CS-LT ranv Spinal N Alberto winters Complications:Non-reassuring electronic monitoring tracing 013 Term 40w 0d 3.175 kg (7 lb) M Epidur al N Alberto g Complications:Rupture of Mem branes > 18 hours Last Filed Vital Signs Vital Sign Reading [...] Mass Index 36.81 11/03/2024 5:58 PM CDT Plan of Treatment Health Maintenance Due Date Last Done Comments Hepatitis C Screening 1982 HPV Vaccines (1 - 3-dose SCDM series) 2009 Cervical Cancer Screening 04/15/2023 04/14/2022 Regular Well Visit/Exam 18-64 04/15/2023 04/14/2022, 02/21/2022 Depression Screening 06/26/2024 06/27/2023, 06/27/2023, 11/27/2022, Additional history exists Covid-19 Vaccine ( season) 2024 03/30/2021, 03/09/2021 Influenza Vaccine (#1) 2024 3, 11/22/2012, 11/22/2012, Additional history exists Breast Cancer Screening-Mammogram 05/21/2025 05/21/2024, 10/23/2022 DTaP/Tdap/Td Vaccine (6 - Td or Tdap) 09/13/2031 09/12/2021, 11/22/2012, 05/28/2011, Additional history exists Hepatitis B Screening Completed 05/10/2006 , 05/10/2006, 01/23/2006, Additional history exists Pneumococcal vaccine <65 Aged Out No longer eligible based on patient's age to complete this topic Varicella Vaccines Discontinued Procedures Procedure Name Priority Date/Time Associated Diagnosis Comments XR CHEST PA LATERAL 2 VIEWS Schedule MATHEW, Read MATHEW (Appt Today, Awaiting Results) 11/03/2024 6:43 PM CDT COVID-19 POC INFLUENZA A/B, COVID-19 ANTIGEN Routine 11/03/2024 6:06 PM CDT COVID-19 DIAGNOSTIC MAMMOGRAM BILATERAL W ANUJ Schedule Routine, Read Routine (OP Routine) 05/21/2024 10:50 AM CDT Abnormal mammogram of right breast PAP AND HIGH RISK HPV, REFLEX TO GENOTYPING Routine 04/14/2022 3:17 PM NEWS ASSIGNMENT EDITOR Well woman exam from Last 3 Months or Most Recently Relevant to Health Maintenance Results * XR Chest Pa Lateral 2 [...] Lizet Mccain D.O. PS T: Report ID: [id number] Reading Location: [id number] Procedure Note Lizet Mccain, - 11/04/2024 EXAM [...] Lizet Mccain D.O. PS T: Report ID: [id number] Reading Location: [id number] Daisy Rowe CHIEF OF STAFF DOCTOR IMG XR PROCEDURES Final Re sult * (ABNORMAL) POC Influenza A/B, COVID-19 antigen (11/03/2024 6:06 PM CDT) Influenza A Ag, POC Negative Negative [facility] Influenza B Ag, POC Negative Negative [facility] COVID-19 Ag POC Positive(A) Presumptive Negative, Invalid [facility] Nasal 11/03/2024 6:06 PM CDT Daisy Rowe NP POINT OF CARE TEST ORDERAB LES Final Result [facility] ED[facility] [address] [place] [address] * DIAGNOSTIC MAMMOGRAM BILATERAL W ANUJ (05/21/2024 10:50 AM CDT) Anatomical Region Laterality Modality Breast Bilateral Mammography 05/21/2024 11:4 3 AM CDT Impressions 05/21/2024 11:43 AM CDT No mammographic or sonographic evidence of malignancy. OVERALL FINAL ASSESSMENT: BI-RADS Category 2: Benign. RECOMMENDATION: Annual screening mammography is recommended. Electronically signed by: Yessi Truong M.D. Narrative 05/21/2024 11:43 AM CDT E EXAMINATION: BILATERAL DIGITAL DIAGNOSTIC MAMMOGRAM INCLUDING CAD AND BILATERAL DIGITAL BREAST TOMOSYNTHESIS; RIGHT BREAST SONOGRAM HISTORY: Follow-up right breast lesion, annual study COMPARISON: 12/07/2022, 10/23/2022 TECHNIQUE: Full field digital mammographic views of BOTH breasts were performed, including computer aided detection (CAD) and BILATERAL digital breast tomosynthesis (DBT). Directed ultrasound evaluation of the RIGHT breast was performed. BREAST PARENCHYMAL COMPOSITION: The breasts are heterogeneously dense, which may obscure small masses. MAMMOGRAM FINDINGS: The focal asymmetry previously a identified in the mid right breast is again visualized. This is unchanged. There is no new dominant density or suspicious microcalcification bilaterally. SONOGRAM FINDINGS: Targeted right breast ultrasound was performed in the region of interest. Again identified at the 8 o'clock position 9 cm from the nipple are 2 abutting simple cysts measuring 11 mm x 6 mm x 9 mm altogether. These are benign. us Yulisa Michel NP IMG MAMMO PROCEDURES Final Resul t * Pap and High Risk HPV, reflex to Genotyping (04/14/2022 3:17 PM NEWS ASSIGNMENT EDITOR) CLINICAL INFORMATION: [facility] Comment:None given LMP [facility] Comment:A Previous Pap [facility] Comment:NONE GIVEN Prev. Bx [facility] [employer] [facility] Comment:NONE GIVEN SOURCE: [facility] Comment:Cervix, Endocervix Pap, specimen adequacy [facility] Comment: Satisfactory for evaluation. Endocervical/transformation zone component present. Age and/or menstrual status not provided HPV interp [facility] Comment:Negative for intraep ithelial lesion or malignancy. Mixed Signal Design Engineer [facility]iv[facility] Comment: JAF, CT(ASCP) CT Screening Location: [place] [address] [address] YONG Irizarry [facility] Comment [facility] Comment: EXPLANATORY NOTE: The Pap is a screening test for cervical cancer. It is not a diagnostic test and is subject to false negative and false positive results. It is most reliable when a satisfactory sample, regularly obtained, is submitted with relevant clinical findings and history, and when the Pap result is evaluated along with historic and current clinical information. Human papillomavirus DNA, High Risk E6/E7 Not Detected NOT DETECTED [employer] [facility] [place] Comment: Not Detected High Risk HPV types (16,18,31,33,35,39,45,51,52, 56,58,59,66,68) were not detected. Other HPV types which cause anogenital lesions may be present. The significance of the other types of HPV in malignant processes has not been established. Methodology: Real Time PCR Thin prep (None) 04/14/2022 3:17 PM NEWS ASSIGNMENT EDITOR 04/17/2022 6:34 AM NEWS ASSIGNMENT EDITOR us Nafisa Cerda NP LAB CYTOLOGY ORDERABLES Fin al Result Performing Organization Address City/State/[facility] Co de Phone Number DYLLAN [facility] [address] [place] [address] [employer]/[facility] [address] [place] [address] from Last 3 Months or Most Recently Relevant to Health Maintenance Additional Health Concerns Infection Onset Date Last Indicated COVID19 11/03/2024 11/03/2024 Insurance [facility] CHOICE PLUS [facility] Advance Directives For more information, please contact: [phone] * Full Code (Latest Code Status on File) Date Activated Date Inactivated Comments 10/25/2022 11:23 AM 10/25/2022 4:45 PM Care Teams Physician Locums Urgent Care Relationship Specialty Start Date End Date Yulisa Munoz MD PCP - General Family Practice 02/21/22 Unknown, Notinfile 01/19/22 Yovany Lloyd MD [address] [place] [address] [place] [address] Sharepoint Net Developer Obstetrics and Gynecology 10/25/22
--- OUTSIDE RECORDS SUMMARY | 2024-11-04 13:27 | XMS_ITS | Encounter Summary ---
Author Organization [facility] Healthcare Address [address] [place] [address] Care Team Providers Care Wharf Tender Name Role Phone Yulisa Munoz MD Primary Care Provider Unknown, Notinfile Unavailable Unavailable Yovany Lloyd MD Unavailable [phone] Encounter Details Date Type Department Care Team (Late st Contact Info) Description 11/04/2024 Results Follow-Up [facility] Medical Group Convenient Care at [place] [address] [place] [address] Daisy Rowe, MILLINERY DEPARTMENT MANAGER [address] [place] [address] [address] [place] [address] XR Chest Pa Lateral 2 Views Social History Tobacco Use Types Packs/Day Years [...] on file 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 6 tablet 11/04/2024 5 documented in this encounter Plan of Treatment Not on file documented as of this encounter Visit Diagnoses Not on filedocumented in this encounter Additional Health Concerns Infection Onset Date Last Indicated Resolved Time COVID19 11/03/2024 11/03/2024 documented as of this encounter Care Teams Wharf Tender Relationship Specialty Start Date End Date Yulisa Munoz MD PCP - General Family Practice 02/21/22 Unknown, Notinfile 01/19/22 Yovany Lloyd MD [address] [place] [address] [address] [place] [id number] Video Software Engineer Obstetrics and Gynecology 10/25/22 documented as of this encounter
[2024-11-04 15:12] VITALS: BP 131/80; PULSE 105; RESP 19; TEMP 36.9; O2SAT 98
--- NOTE | 2024-11-04 15:13 | ED.GENADULT ---
HPI - General Adult General Chief complaint: Shortness of Breath/Dyspnea <Nell Carmen June, [employer] - Last Filed: 11/05/24 19:39> Stated complaint: covid+, PNA <Nell Carmen June, - Last Filed: 11/05/24 19:39> Time Seen by Provider: 11/04/24 15:13 <Nell Carmen June, [employer] - Last Filed: 11/05/24 19:39> Focused HPI: Linnea Brewer is a 44 y/o female who presents today with reports of feeling SOB was diagnosed with Covid yesterday , Her PCP called her and told her based on her chest xr she has pneumonia and needs to go to the ER. She denies any pain anywhere, she continues to feel SOB GENERAL: no acute distress. HEAD: Normocephalic, atraumatic. CHEST: Clear to auscultation. ? HEART: Regular rate and rhythm.? NEURO: ?Alert and oriented x3. Patient screened in triage and initial orders placed.? ?Additional care and disposition to be based upon?diagnostic testing and treatment. <Nell Carmen June, - Last Filed: 11/05/24 19:39> Focused HPI: Linnea Brewer is a 44 y/o female who presents today with reports of feeling SOB was diagnosed with Covid yesterday. Her PCP called her and told her based on her chest xr she has pneumonia and needs to go to the ER. She denies any pain anywhere, she continues to feel SOB GENERAL: No acute distress. HEAD: Normocephalic, atraumatic. CHEST: Clear to auscultation. ? HEART: Regular rate and rhythm.? NEURO: ?Alert and oriented x3. Patient screened in triage and initial orders placed.? ?Additional care and disposition to be based upon?diagnostic testing and treatment. <Janeth Pendleton PA-C - Last Filed: 11/04/24 21:19> Related Data Home medications: Home Medications ?Medication ?Instructions ?Recorded ?Confirmed ?Last Taken ?Type escitalopram oxalate 20 mg tablet 20 mg PO DAILY 09/19/22 09/19/22 Unknown History trazodone 50 mg tablet 50 mg PO HS 09/19/22 09/19/22 Unknown History <Nell Carmen June, [employer] - Last Filed: 11/05/24 19:39> Allergies/adverse reactions: Allergies Allergy/AdvReac Type Severity Reaction Status Date / Time Penicillins Allergy Swelling Verified 09/19/22 18:24 of Lip/Tongue/Throat <Nell Carmen June, - Last Filed: 11/05/24 19:39> Review of Systems Review of Systems: All systems reviewed & are unremarkable except as noted in HPI and below <Janeth Pendleton PA-C - Last Filed: 11/04/24 21:19> PMFSH Past Medical History Medical History: Medical History Anxiety and depression Back pain <Nell Carmen June, - Last Filed: 11/05/24 19:39> Social History Social History: Social History Smoking status: Never smoker Alcohol intake: unknown Substance use: never Living arrangements: with family Gender identity (if verbalized by the patient): Female <Nell Carmen June, [employer] - Last Filed: 11/05/24 19:39> Exam Narrative: GENERAL: Well-appearing, well-nourished, and in no acute distress. HEAD: Normocephalic, atraumatic. EYES: EOMI. ENT: Nares clear, no rhinorrhea or epistaxis. Mucous membranes moist. Oropharynx without tonsillar hypertrophy exudate or other lesions. Bilateral TMs pearly steve non-bulging NECK: Supple. No adenopathy or masses. CHEST: Clear to auscultation. No respiratory distress. No wheezes rales or rhonchi HEART: Regular rate and rhythm. No murmur heard. Normal peripheral pulses. EXTREMITIES: Normal range of motion. No edema. SKIN: Warm, dry, no rash. NEURO: No focal deficits. Alert and oriented x3. PSYCH: Normal mood and affect <Janeth Pendleton PA-C - Last Filed: 11/04/24 21:19> Course Course Emergency Course: Patient updated on her workup and agrees with plan of care. Oxygen saturation normal with ambulation challenge <Janeth Pendleton PA-C - Last Filed: 11/04/24 21:19> Vital Signs Vital signs: Vital Signs Temperature 37.0 C 11/04/24 13:21 Pulse Rate 92 11/04/24 13:21 Respiratory Rate 18 11/04/24 13:21 Blood Pressure 133/100 H 11/04/24 13:21 Pulse Oximetry 100 11/04/24 13:21 Temperature 37.0 C 11/04/24 21:30 Pulse Rate 75 11/04/24 21:30 Respiratory Rate 16 11/04/24 21:30 Blood Pressure 115/72 11/04/24 21:30 Pulse Oximetry 97 11/04/24 21:30 Oxygen Delivery Room Air 11/04/24 19:03 <Nell Scanlon, [employer] - Last Filed: 11/05/24 19:39> Vital Signs Temperature 37.0 C 11/04/24 13:21 Pulse Rate 92 11/04/24 13:21 Respiratory Rate 18 11/04/24 13:21 Blood Pressure 133/100 H 11/04/24 13:21 Pulse Oximetry 100 11/04/24 13:21 Temperature 37.0 C 11/04/24 21:30 Pulse Rate 75 11/04/24 21:30 Respiratory Rate 16 11/04/24 21:30 Blood Pressure 115/72 11/04/24 21:30 Pulse Oximetry 97 11/04/24 21:30 Oxygen Delivery Room Air 11/04/24 19:03 <Janeth Pendleton PA-C - Last Filed: 11/04/24 21:19> Medical Decision Making MDM Narrative Medical decision making narrative: Patient presents the emergency department for shortness of breath. Currently has known COVID. She is afebrile and nontoxic appearing. Her vital signs are stable. Oxygen saturation is 100% on room air. Cbc and metabolic panel without concerning findings. Chest x-ray without acute cardiopulmonary abnormality. D-dimer is not elevated. Patient updated on her workup and agrees with plan of care. Instructed on further care of viral infection. She is to follow up with primary provider. She was given warnings to return to the ER <Janeth Pendleton PA-C - Last Filed: 11/04/24 21:19> Differential Diagnosis Differential Diagnosis: Pneumonia, PE, COVID-19 <Janeth Pendleton PA-C - Last Filed: 11/04/24 21:19> Vital Signs Vital Signs: Vital Signs Temperature 37.0 C 11/04/24 13:21 Pulse Rate 92 11/04/24 13:21 Respiratory Rate 18 11/04/24 13:21 Blood Pressure 133/100 H 11/04/24 13:21 Pulse Oximetry 100 11/04/24 13:21 Temperature 37.0 C 11/04/24 21:30 Pulse Rate 75 11/04/24 21:30 Respiratory Rate 16 11/04/24 21:30 Blood Pressure 115/72 11/04/24 21:30 Pulse Oximetry 97 11/04/24 21:30 Oxygen Delivery Room Air 11/04/24 19:03 <Nell Scanlon, [employer] - Last Filed: 11/05/24 19:39> Vital Signs Temperature 37.0 C 11/04/24 13:21 Pulse Rate 92 11/04/24 13:21 Respiratory Rate 18 11/04/24 13:21 Blood Pressure 133/100 H 11/04/24 13:21 Pulse Oximetry 100 11/04/24 13:21 Temperature 37.0 C 11/04/24 21:30 Pulse Rate 75 11/04/24 21:30 Respiratory Rate 16 11/04/24 21:30 Blood Pressure 115/72 11/04/24 21:30 Pulse Oximetry 97 11/04/24 21:30 Oxygen Delivery Room Air 11/04/24 19:03 <Janeth Pendleton PA-C - Last Filed: 11/04/24 21:19> Lab Data Lab results reviewed: Yes I reviewed the patient's lab results. <Janeth Pendleton PA-C - Last Filed: 11/04/24 21:19> Result diagrams: 11/04/24 15:36 11/04/24 15:36 <Nell Scanlon APRN - Last Filed: 11/05/24 19:39> Labs: Lab Results 11/04/24 11/04/24 Range/Units 15:36 19:00 WBC 9.4 (4.5-10.0) K/mm3 RBC 5.17 (4.2-5.4) M/mm3 Hgb 14.2 (12.0-15.0) g/dL Hct 44.1 (37.0-47.0) % MCV 85.3 (80-100) fl MCH 27.5 (26-34) pg MCHC 32.2 (32-36) g/dl RDW 13.7 (11.5-14.5) % Plt Count 345 (150-375) k/mm3 MPV 10.2 (7.4-10.4) fl Immature Gran % (Auto) 0.3 (0-0.5) % Neut % (Auto) 66.6 (45.5-73.1) % Lymph % (Auto) 20.9 (18.3-44.2) % [place] % (Auto) 9.9 H (2.6-8.5) % Eos % (Auto) 1.9 (0-4.4) % Baso % (Auto) 0.4 (0.2-1.2) % Lymph # (Auto) 1.97 (0.9-3.2) K/mm3 [place] # (Auto) 0.9 H (0.1-0.6) K/mm3 Eos # (Auto) 0.2 (0-0.3) K/mm3 Baso # (Auto) 0.0 (0.0-0.1) K/mm3 Abs Immat Gran (auto) 0.03 (0.00-0.031) K/mm3 Absolute Neuts (auto) 6.3 (1.3-6.7) K/mm3 Absolute Nucleated RBC 0.000 (0.0-0.012) K/mm3 Nucleated RBC % 0.0 (0.0-0.2) % PT 13.6 (11.1-14.7) Seconds INR 1.0 APTT 29.4 (22.3-36.8) Seconds D-Dimer < 0.27 (<0.48) ug/mL Sodium 135 L (137-145) mmol/L Potassium 3.6 (3.4-5.0) mmol/L Chloride 102 (98-107) mmol/L Carbon Dioxide 25 (22-30) mmol/L Anion Gap 8 (4-12) mmol/L BUN 7 (7-17) mg/dL Creatinine 0.78 (0.7-1.0) mg/dL Estim Creat Clear Calc 103 ml/min Estimated GFR > 60 (59 - ) Glucose 104 (65-110) mg/dL Calcium 9.5 (8.4-10.2) mg/dL Total Bilirubin 0.6 (0.2-1.3) mg/dL AST 29 (14-36) U/L ALT 18 (6-35) U/L Alkaline Phosphatase 75 (38-126) U/L Total Protein 8.0 (6.3-8.2) g/dL Albumin 4.3 (3.5-5.1) g/dL <Nell Scanlon, [employer] - Last Filed: 11/05/24 19:39> Lab Results 11/04/24 11/04/24 Range/Units 15:36 19:00 WBC 9.4 (4.5-10.0) K/mm3 RBC 5.17 (4.2-5.4) M/mm3 Hgb 14.2 (12.0-15.0) g/dL Hct 44.1 (37.0-47.0) % MCV 85.3 (80-100) fl MCH 27.5 (26-34) pg MCHC 32.2 (32-36) g/dl RDW 13.7 (11.5-14.5) % Plt Count 345 (150-375) k/mm3 MPV 10.2 (7.4-10.4) fl Immature Gran % (Auto) 0.3 (0-0.5) % Neut % (Auto) 66.6 (45.5-73.1) % Lymph % (Auto) 20.9 (18.3-44.2) % [place] % (Auto) 9.9 H (2.6-8.5) % Eos % (Auto) 1.9 (0-4.4) % Baso % (Auto) 0.4 (0.2-1.2) % Lymph # (Auto) 1.97 (0.9-3.2) K/mm3 [place] # (Auto) 0.9 H (0.1-0.6) K/mm3 Eos # (Auto) 0.2 (0-0.3) K/mm3 Baso # (Auto) 0.0 (0.0-0.1) K/mm3 Abs Immat Gran (auto) 0.03 (0.00-0.031) K/mm3 Absolute Neuts (auto) 6.3 (1.3-6.7) K/mm3 Absolute Nucleated RBC 0.000 (0.0-0.012) K/mm3 Nucleated RBC % 0.0 (0.0-0.2) % PT 13.6 (11.1-14.7) Seconds INR 1.0 APTT 29.4 (22.3-36.8) Seconds D-Dimer < 0.27 (<0.48) ug/mL Sodium 135 L (137-145) mmol/L Potassium 3.6 (3.4-5.0) mmol/L Chloride 102 (98-107) mmol/L Carbon Dioxide 25 (22-30) mmol/L Anion Gap 8 (4-12) mmol/L BUN 7 (7-17) mg/dL Creatinine 0.78 (0.7-1.0) mg/dL Estim Creat Clear Calc 103 ml/min Estimated GFR > 60 (59 - ) Glucose 104 (65-110) mg/dL Calcium 9.5 (8.4-10.2) mg/dL Total Bilirubin 0.6 (0.2-1.3) mg/dL AST 29 (14-36) U/L ALT 18 (6-35) U/L Alkaline Phosphatase 75 (38-126) U/L Total Protein 8.0 (6.3-8.2) g/dL Albumin 4.3 (3.5-5.1) g/dL <Janeth Pendleton PA-C - Last Filed: 11/04/24 21:19> Imaging Data Radiologist's impression: ITS Impressions Chest X-Ray 11/04/24 20:49 IMPRESSION: 1: NO ACUTE CARDIOPULMONARY DISEASE. <Janeth Pendleton PA-C - Last Filed: 11/04/24 21:19> ECG Data EKG #1: ECG completion date: 11/04/24 <MICHELLE Mayorga Last Filed: 11/04/24 21:19> EKG Interpretation: normal rate, sinus rhythm, no ST changes and normal QT <MICHELLE Mayorga Last Filed: 11/04/24 21:19> Critical Care Time Critical Care Time Critical Care Time: No <Janeth Pendleton PA-C - Last Filed: 11/04/24 21:19> Discharge Plan Discharge Clinical Impression: COVID-19 <Nell J. June, Filed: 11/05/24 19:39> Patient Disposition: Home <Nell Carmen June, Last Filed: 11/05/24 19:39> Condition: Stable <Nell Carmen June, Filed: 11/05/24 19:39> Instructions: COVID-19 (Coronavirus Disease 2019) (ED), How to Recover from COVID-19 at Home (ED) <Nell Carmen June, Filed: 11/05/24 19:39> Additional Instructions: Return to the emergency department for worsening symptoms, or any other concerns Remain well-hydrated, get plenty of rest. Take Tylenol or Motrin [id number] for pain as needed. Flonase for nasal congestion. Zyrtec for runny nose. Lozenges or Chloraseptic spray for sore throat. Follow up with primary care doctor <Nell Carmen June, Filed: 11/05/24 19:39> Patient Language: Slovenian <Nell Carmen June, Filed: 11/05/24 19:39> Prescriptions: No Action trazodone 50 mg tablet 50 mg PO HS escitalopram oxalate 20 mg tablet 20 mg PO DAILY ofloxacin 0.3 % drops See Rx Instructions .ROUTE .COMPLEX Qty: 10 0RF Rx Instructions: put 1-2 drps into affected eye(s) every 2-4 h x 2 days, then 1-2 drps 4 times/day days 3-7 left eye dexamethasone 4 mg tablet 4 mg PO Q8H Qty: 15 0RF <Nell Carmen June, Filed: 11/05/24 19:39> Follow-up/Referrals: PHYSICIAN NOT ON STAFF,NONSTAFF [Primary Care Provider] <Nell Carmen June, Filed: 11/05/24 19:39>
[2024-11-04 15:41] LABS: Hematocrit 44.1 % (37.0-47.0); Hemoglobin 14.2 g/dL (12.0-15.0); Immature Granulocyte Percent A 0.3 % (0-0.5); Lymphocytes Absolute Auto 1.97 K/mm3 (0.9-3.2); Mean Corpuscular HGB Conc 32.2 g/dl (32-36); Mean Corpuscular Hemoglobin 27.5 pg (26-34); Mean Corpuscular Volume 85.3 fl (80-100); Nucleated Red Blood Cells Absolute Auto 0.000 K/mm3 (0.0-0.012); Nucleated Red Blood Cells Perc 0.0 % (0.0-0.2); Platelet Count Result 345 k/mm3 (150-375); Red Blood Count 5.17 M/mm3 (4.2-5.4); White Blood Count 9.4 K/mm3 (4.5-10.0)
[2024-11-04 15:56] LABS: Alanine Aminotransferase 18 U/L (6-35); Albumin Level 4.3 g/dL (3.5-5.1); Alkaline Phosphatase 75 U/L (38-126); Anion Gap 8 mmol/L (4-12); Aspartate Amino Transferase 29 U/L (14-36); Bilirubin,Total 0.6 mg/dL (0.2-1.3); Blood Urea Nitrogen 7 mg/dL (7-17); Calcium 9.5 mg/dL (8.4-10.2); Carbon Dioxide 25 mmol/L (22-30); Chloride 102 mmol/L (98-107); Estimated CRCL calculation 103 ml/min; Estimated Glomerular Filt Rate > 60; Glucose 104 mg/dL (65-110); Potassium 3.6 mmol/L (3.4-5.0); Sodium 135 mmol/L (137-145); Total Protein 8.0 g/dL (6.3-8.2)
--- NOTE | 2024-11-04 18:30 | ECG_ITS ---
Test Date: 2024-11-04 18:59:40 Measurements Intervals [place] Rate: 86 P: 44 AK: 155 QRS: -14 QRSD: 79 T: 30 QT: 370 QTc: 443 Interpretive Statements SINUS RHYTHM VOLTAGE CRITERIA FOR LVH [MEETS CRITERIA IN ONE OF: R(aVL), S(V1), R(V5), R(V5/V6)+S(V1)] POOR R-WAVE PROGRESSION ABNORMAL ECG No previous ECG available for comparison Electronically Signed On 11-05-2024 07:26:32 CDT by Roshan Grant M.D.
--- NOTE | 2024-11-04 18:44 | PC.NURSE ---
Lab called tto add on Pt, PTT, D-dimer
[2024-11-04 18:52] VITALS: PULSE 92; RESP 20
[2024-11-04 19:20] VITALS: PULSE 91; RESP 22; TEMP 36.7; O2SAT 97
[2024-11-04 19:20] LABS: INR 1.0; Prothrombin Time 13.6 Seconds (11.1-14.7)
--- NOTE | 2024-11-04 19:20 | PC.NURSE ---
Pt. states she tested positive for covid less than 24 hours ago at a [facility] urgent care.
[2024-11-04 19:21] LABS: Partial Thromboplastin Time 29.4 Seconds (22.3-36.8)
[2024-11-04] MEDS: ACETAMINOPHEN 500 MG TABLET 1000 MG PO (19:21)
[2024-11-04] MEDS: SODIUM CHLORIDE 0.9% IV 1,000 ML 999 ML IV CONT (19:21)
[2024-11-04 20:30] VITALS: BP 113/86; PULSE 98; RESP 22; O2SAT 98
--- NOTE | 2024-11-04 20:42 | PC.NURSE ---
Pt. to x-ray.
[2024-11-04 21:30] VITALS: BP 115/72; PULSE 75; RESP 16; TEMP 37; O2SAT 97
== END 2024-11-04 21:43 | disposition home or self-care (01) ==
PROVIDERS: Nurse Practitioner Family; Emergency Provider Physician Assistant
DX: U07.1 COVID-19 (principal)
CPT/HCPCS: 36415; 71046; 80053; 85025; 85380; 85610; 85730; 93005; 96360; 99283; A9270; J7030